=== PATIENT | female | born 1955 | race Caucasian/White ===

== ENCOUNTER → 2018-08-26 | Outpatient (CLI) | payer OTHER, SELFPAY ==
[2018-08-19 09:21] VITALS: BMI 20.1
--- NOTE | 2018-08-26 09:11 | MRI_ITS ---
STUDY: MRI ABDOMEN AND PELVIS WITH AND WITHOUT CONTRAST REASON FOR EXAM: Female, 63 years old. MRI enterography, Crohn's disease, bowel abscess, drainage tube placed July 25, 2018. TECHNIQUE: Standardized fat and water weighted pulse sequences were obtained in all 3 orthogonal planes post contrast administration. 10 ml of Dotarem contrast material was administered intravenously for the contrast portion of the examination. COMPARISON: CT abdomen and pelvis 07/22/2018 FINDINGS: MR ABDOMEN: Body wall soft tissues: No acute process. Osseous structures: No acute process. Inferior chest: No acute process. Hepatobiliary: Hepatomegaly, craniocaudal right liver 19.7 cm. Normal gallbladder and biliary tree. Pancreas: Normal. Spleen: Normal. Adrenal glands: Normal right adrenal gland. Left adrenal gland nodule 1.4 cm. Signal dropout on fat-saturated images suggest lipid content most consistent with benign lipid rich adrenal adenoma. Functional adenoma not excluded. Urinary tract: Unremarkable kidneys, collecting systems and proximal ureters. Retroperitoneum: No acute process. Abdominal vasculature: No acute process. Stomach: No acute process. Duodenum: Normal. No apparent duodenitis. Jejunum: Normal. Ileum: Visualized portions of the ileum appear normal. Large bowel: Visualized portions of large bowel including the hepatic flexure, transverse colon, splenic fracture unremarkable. MRI PELVIS: Body wall soft tissues: There is edema within the subcutaneous fat of the anterior abdominal wall. There is no visible drainage catheter. Osseous structures: Mild lumbar scoliosis. No significant spondylosis. Uterus: Large fundal fibroid measuring 6.3 cm. Adnexa: Ovaries not clearly visualized. No adnexal mass or cyst. Free fluid: Minimal pelvic cul-de-sac free fluid. Distal ureters and urinary bladder: Normal distal ureters. There is thickening of the dome of the urinary bladder wall which lies immediately adjacent to the inflamed sigmoid colon. There is a small focus of gas within the urinary bladder consistent with colovesical fistula. A tiny fistula tract is visible just left of midline traversing the urinary bladder wall. Tract measures about 6 mm in diameter at its widest extent. Best appreciated on series 21, image 33. Large bowel: The appendix is not clearly visualized. The ascending colon, transverse colon, and descending colon are normal. Proximal sigmoid colon, segment measuring 7 cm in length, is circumferential thickening of the wall, prominent inflammatory induration in the surrounding fat, inflammation of the intimately adjacent dome of the urinary bladder wall. There is no apparent abscess adjacent to the sigmoid colon. Small bowel: There is circumferential thickening of wall of the distal ileum, normalizing at the terminal ileum, involving a segment of the distal ileum measuring approximately 23 cm in length. Phlegmonous prominent induration in the surrounding mesenteric fat in the central abdomen, below the umbilicus, surrounding the proximal 3rd of the inflamed portion of small bowel. The phlegmonous process measures approximately 4. 6.4 cm. There is no defined drainable abscess. This process is centered on series 11 image 24, series 13 image 24, series 15 image 17, series 21 image 24, visible additional sequences. There is a possibility, not definitive, of a coloenteric fistula between the inflamed portion of proximal sigmoid colon and the inflamed portion of the distal ileum. Superior to the phlegmonous process, there is a very slender band of T2 hyperintensity suggesting a fistula tract coursing into the mesentery. Series 15, image 17. MRI/MRI Abd WITH and W/O Contrast IMPRESSION: Complex phlegmonous process of the small bowel mesentery, without drainable abscess. Evidence of fistulization into the dome of the urinary bladder. This may to be a colovesical fistula from the inflamed sigmoid or an enterovesical fistula from the inflamed small bowel. Favoring colovesical fistula. prominently inflamed proximal sigmoid colon. Prominently inflamed distal ileum, in particular a loop just above the proximal sigmoid colon involved with the phlegmonous process. Evidence of a slender fistula from the inflamed ileum, terminating in the mesentery. Fibroid uterus. Hepatomegaly. Electronically Signed: Sharif Dai MD at 17:24 EDT Tel , Service support ,
[2018-08-26 10:07] VITALS: BP 107/61; PULSE 67; RESP 16; O2SAT 100; BMI 20.1
[2018-08-26] MEDS: Glucagon 1 MG/ML Syringe IV (10:47)
[2018-08-26 11:25] VITALS: BP 96/50; PULSE 68; RESP 16; O2SAT 100
== END | disposition home or self-care (01) ==
LOC: MRI 08:58
PROVIDERS: Family Provider Family Medicine; PCP Family Medicine
DX: R18.8 Other ascites (principal); K50.90 Crohn's disease, unspecified, without complications
CPT/HCPCS: 74183; A9575; J1610

== ENCOUNTER 2018-09-01 08:34 | Day surgery (SDC) | payer OTHER, SELFPAY ==
[2018-08-19 09:21] VITALS: BMI 20.1
[2018-08-26 10:07] VITALS: BMI 20.1
[2018-09-01 08:46] VITALS: BP 106/56; PULSE 65; RESP 16; TEMP 36.9; O2SAT 100
--- NOTE | 2018-09-01 09:45 | IMM_PTH ---
PATIENT: EUGENIA JI LOC: EN U#:[id number] AGE/SX: 63/F ROOM: RE09/01/[address]: Dr. Bartolo Cabrera MD : 1955 BED: DIS: 09/01/2018 SPEC #: [id number] RECD: 09/01/18 12:27 STATUS: GUANAKITO LAZARA #: [id number] CARLOS: 09/01/18 09:[address]: Bartolo Cabrera DEPT: IMMUNOHISTOCHEMISTRY RECD BY: Josiane Liu ENTERED: 09/01/18 12:27 SP TYPE: IMMUNO OTHR DR: Jia Kendall PA-C Tissues: Stomach, NOS Procedures: H Pylori (initial) PHYSICIAN & INSTITUTION [place] [id number] SPECIMEN INFORMATION: Tissue Source: Antral biopsy Clinical Info: Abdominal pain, Crohn's disease, diarrhea, hemorrhoids Specimen Number: [id number] CPT code: 74693 METHODOLOGY: Deparaffinized sections of prefer/formalin-fixed tissue or PAP/DQ stained slides are incubated with monoclonal/polyclonal antibodies/oligonucleotide probes. Localization is made via biotin free immunoperoxidase method. Appropriate controls are performed and reacted as expected. Results on target cell population are indicated in the following table: RESULTS: ANTIBODY / CLONE RESULT H Pylori (polyclonal) positive These tests were developed and their performance characteristics determined by [facility]. They may not have been cleared or approved by the U.S. Food and Drug Administration. The FDA has determined that such clearance or approval is not necessary. INTERPRETATION: Antral biopsy: Positive for numerous Helicobacter pylori organisms. SJ:scooby 09/02/18
--- NOTE | 2018-09-01 09:45 | EGD_PTH ---
PATIENT: EUGENIA JI LOC: EN U#:[id number] AGE/SX: 63/F ROOM: RE09/01/[address]: Dr. Bartolo Cabrera MD : 1955 BED: DIS: 09/01/2018 SPEC #: [id number] RECD: 09/01/18 10:52 STATUS: GUANAKITO LAZARA #: [id number] CARLOS: 09/01/18 09:[address]: Bartolo Cabrera DEPT: SURGICAL PATHOLOGY RECD BY: Jair Rice ENTERED: 09/01/18 11:21 SP TYPE: EGD BIOPSY OT DR: Jia Kendall PA-C Tissues: Gastric mucous membrane Procedures: Surgery Specimen Level IV HEADER OPERATION: Colonoscopy, EGD ([facility]) PRE-OP DIAGNOSIS: Abdominal pain, Crohn's disease with abscess, diarrhea, hemorrhoids TISSUE SUBMITTED: Antral biopsy for H. pylori and pathology MICROSCOPIC DIAGNOSIS Antral biopsy: Moderate chronic active gastritis. SJ:scooby 09/02/18 COMMENT The results of immunohistochemistry for Helicobacter pylori will be reported separately ([id number]). MICROSCOPIC DESCRIPTION Slides are reviewed. GROSS DESCRIPTION Received in fixative is one container labeled with the patient's name and designated antral biopsy. The specimen consists of one irregular fragment of light shepard soft tissue that measures 0.6 x 0.4 x 0.1 cm. The specimen is totally submitted in one cassette. / SALLY:scooby 09/01/18 TC:2 CPT: 82060
--- NOTE | 2018-09-01 09:46 | OP.ENDO_ITS ---
09/01/2018 [facility] Re : Upper GI endoscopy procedure for Tari Kendall This procedure was performed on Saturday, September 01, 2018. My impressions and recommendations are as follows: Impressions : - Normal esophagus. - Z-line regular, 38 cm from the incisors. No specimens collected. - Erythematous mucosa in the prepyloric region of the stomach. Biopsied. - Normal duodenal bulb, first portion of the duodenum and second portion of the duodenum. No specimens collected. Recommendations : - Discharge patient to home. - Resume previous diet. - Continue present medications. - Await pathology results. - Repeat upper endoscopy (date not yet determined) for screening purposes. - Return to my office in 1 week. My findings are described in the full procedure note, which is enclosed. If I can be of further assistance, please feel free to contact me at Doctor phone number(s): , Fax: [phone], Work: . Sincerely, MD Bartolo Dodd MD 09/01/2018 9:46:22 AM This report has been signed electronically.
--- NOTE | 2018-09-01 09:49 | OP.ENDO_ITS ---
09/01/2018 [facility] Kend[facility] Re : Colonoscopy procedure for Tari Kendall This procedure was performed on Saturday, September 01, 2018. My impressions and recommendations are as follows: Impressions : - Diverticulosis in the descending colon. No specimens collected. - Non-bleeding internal hemorrhoids. - The examination was otherwise normal. Recommendations : - Discharge patient to home. - Resume previous diet. - Continue present medications. - Repeat colonoscopy in 5 years for surveillance. - Return to my office in 1 week. My findings are described in the full procedure note, which is enclosed. If I can be of further assistance, please feel free to contact me at Doctor phone number(s): , Fax: [phone], Work: . Sincerely, MD Bartolo Dodd MD 09/01/2018 9:49:22 AM This report has been signed electronically.
[2018-09-01 09:50] VITALS: BP 106/56; BP 114/66; PULSE 66; RESP 16; TEMP 36.6; O2SAT 100
[2018-09-01 09:55] VITALS: BP 104/68; BP 106/56; PULSE 59; RESP 16; O2SAT 100
[2018-09-01 10:00] VITALS: BP 102/68; BP 106/56; PULSE 60; RESP 16; O2SAT 100
[2018-09-01 10:05] VITALS: BP 104/64; BP 106/56; PULSE 58; RESP 16; TEMP 36.4; O2SAT 100
[2018-09-01 10:46] VITALS: BP 106/56
== END 2018-09-01 10:47 | disposition home or self-care (01) ==
LOC: EN 08:35 → AC 08:36
PROVIDERS: Family Provider Family Medicine; PCP Family Medicine; Referring Provider Family Medicine; Visit Provider Surgery
PROC: 0DJD8ZZ Inspection of Lower Intestinal Tract, Via Natural or Artificial Opening Endoscopic (ICD-10-PCS; CPT 45378; principal; 2018-09-01 09:40)
DX: K29.50 Unspecified chronic gastritis without bleeding (principal); B96.81 Helicobacter pylori [H. pylori] as the cause of diseases classified elsewhere; K57.30 Diverticulosis of large intestine without perforation or abscess without bleeding; K64.8 Other hemorrhoids; K50.814 Crohn's disease of both small and large intestine with abscess; K65.1 Peritoneal abscess; Z79.899 Other long term (current) drug therapy; Z87.891 Personal history of nicotine dependence
CPT/HCPCS: 43239; 45378; 88305; 88342; J7120; J2405

== ENCOUNTER 2021-08-16 12:52 | Emergency (ER) | payer OTHER, SELFPAY ==
[2021-08-16 12:52] VITALS: BP 145/81; PULSE 89; RESP 16; TEMP 36.4; O2SAT 96; BMI 22.8
--- NOTE | 2021-08-16 13:22 | EKG12_ITS ---
Test Reason : Blood Pressure : / mmHG Vent. Rate : 069 BPM Atrial Rate : 069 BPM P-R Int : 164 ms QRS Dur : 106 ms QT Int : 536 ms P-R-T Axes : 028 016 033 degrees QTc Int : 574 ms Normal sinus rhythm Nonspecific ST abnormality Prolonged QT Abnormal ECG Confirmed by CINDY CASTELLANOS, ELIZABETH ([id number]), communications editor JERI TYLER ([id number]) on 08/23/2021 10:27:32 AM Referred By: SAIRA Confirmed By:ELIZABETH WHITE MD
--- NOTE | 2021-08-16 13:26 | EDS_ITS ---
HPI HPI - GI History of Present Illness Chief Complaint: Abd Pain Informant: patient Abdominal Pain/Flank Pain Onset: Month(s) Context: Gradual Onset Timing: Intermittent Quality: Cramping Location: Diffuse Current Severity: Mild Maximum Severity: Mild Worsened by: Nothing Relieved by: Nothing Nausea/Vomiting/Emesis GI Symptom: Negative for Nausea and Vomiting Diarrhea/Melena/Hematochezia GI Symptom: Positive for Diarrhea Stool Quality: Positive for Loose Severity: Mild Associated Symptoms Associated Symptoms: Negative for Dysuria, Frequency, Hematuria and Urgency Narrative Narrative: 6-year-old female history of colitis or possibly Crohn's. About 4 years ago had a abdominal surgery for an abscess possibly a fistula. Had a partial colectomy and appendectomy. States she does has been feeling well the last 2 to 3 months. Intermittent abdominal pain. Weight loss of 40 to 50 pounds unintentionally. Denies fever or chills. No dysuria. Saw her primary care physician today who sent her to the emergency department. Prior similar symptoms: Yes Recent Illness/Hospitalization: No PFSH PFSH Medical History Abdominal pain Chronic gastritis Colitis Crohns disease Diarrhea Hemorrhoids Home Medications sertraline 50 mg tablet 50 mg PO DAILY 08/19/18 [History Last Taken Unknown] potassium chloride 20 meq PO BID 20 Days #40 tab 08/16/21 [Rx Last Taken Unknown] Allergy/AdvReac Type Severity Reaction Status Date / Time No Known Allergies Allergy Verified 08/16/21 12:54 Family History Mother Thyroid disorder Cancer Rectal Father Diabetes Heart disease Surgical History History of bowel resection History of colonoscopy (~09/01/18) History of esophagogastroduodenoscopy (EGD) (~09/01/18) s/p insertion drainage tube abdomen Social History Smoking Status: Former smoker alcohol intake: current alcohol intake frequency: a few times a month substance use type: does not use ROS ROS ED ROS Narrative Weight loss. Review of Systems ROS Unobtainable: Denies due to encephalopathy Constitutional Constitutional ED: Denies fever(s) ENT ENT ED: Denies ear pain Cardiovascular Cardiovascular: Denies chest pain Respiratory/Chest Respiratory/Chest: Denies dyspnea Gastrointestinal Gastrointestinal: Reports abdominal pain and diarrhea; Denies nausea or vomiting Genitourinary Genitourinary ED: Denies dysuria Musculoskeletal Musculoskeletal: Denies myalgias Integumentary Denies rash Neurologic Neurologic: Denies headache(s) Psychiatric Psychiatric: Denies depression Endocrine Endocrinology: Denies polyuria Hematologic/Lymphatic Hematologic/Lymphatic: Denies easy bruising Allergic/Immunologic Allergic/Immunologic ED: Denies urticaria EXAM Physical Exam Narrative Exam Narrative: 36-year-old female no acute distress. Vital signs stable. Af ebrile. HEENT exam unremarkable. Neck nontender. Lungs clear to auscultation bilaterally heart regular rate and rhythm rate about 90 no murmur. Abdomen soft nondistended normal bowel sounds no peritoneal signs. No signs of obstruction. Well-healed prior vertical incision. Back nontender. Rectal exam done with a female friend who is in the room. There is an external hemorrhoid. Is nontend er. Is not bleeding. It is not thrombosed. Moving all 4 extremities. Nontender no edema. Neurologically awake alert. Const Vital Signs: 08/16/21 12:52 Temperature 97.5 F L Temperature Source Temporal Pulse Rate 89 Respiratory Rate 16 Blood Pressure 145/81 H Blood Pressure Mean 102 Pulse Ox 96 Oxygen Delivery Method Room Air Positive well nourished and well developed; Negative for obese, cachectic, contractures or unkempt General Appearance ED: well developed and NAD; Negative for unkempt, cachectic, contractures or pallor Nutritional Appearance: Negative for cachectic or obese HEENT Reports moist mucous membranes normocephalic and atraumatic Eyes PERRL and EOMs intact bilaterally General Eye ED: Negative for pale conjunctiva or scleral icterus Neck no lymphadenopathy, supple and no JVD General: Negative for tenderness Resp normal respiratory effort and clear to auscultation bilaterally Auscultation: Negative for rales, rhonchi or wheezes Cardio regular rate, regular rhythm, S1 normal heart sound, S2 normal heart sound and no murmurs GI non-tender, non-distended and no masses Auscultation: normoactive bowel sounds Palpation: soft; Negative for tender, guarding or rigid Back/Spine no CVA tenderness General Back: Negative for CVA tenderness Cervical Spine: Negative for cervical spine tenderness Thoracic Spine / Upper Back: Negative for thoracic spinal tenderness Extremity full ROM General Extremety ED: Negative for edema or tenderness General Extremity: Negative for edema Neuro moves all extremities Sensorium / Orientation: alert, oriented to person, oriented to place and donell ented to time; Negative for orientation impaired, confused, lethargic or stuporous Motor Exam: strength 5/5 throughout Psych mental status grossly normal and thought process normal Appearance: Negative for unkempt Skin no wounds General Skin Exam: Negative for jaundice or pallor Lesions: no lesions Rashes: no rashes MDM MDM MDM Narrative Medical decision making narrative: 66-year-old female who states she just has not been feeling well for the last 2 to 3 months. Complaining of weight loss intermittent abdominal pain. CAT scan and labs are pending. Lab Data Attestation: I reviewed the patient's lab results. Lab results narrative: CBC is unremarkable. White count of 9.5. H&H of 13 and 40. [place] light show potassium of 2.1. Normal BUN of 10 creatinine 0.8. Liver enzymes are normal. Urinalysis shows 10-25 red cells. No white cells. No bacteria. No nitrites. Labs: Laboratory Results - last 24 hr 08/16/21 08/16/21 08/16/21 13:35 13:35 13:45 WBC 9.5 RBC 4.66 Hgb 13.3 Hct 40.1 MCV 86.1 MCH 28.5 MCHC 33.2 RDW Std Deviation 38.8 RDW Coeff of Jessica 12.3 Plt Count 346 MPV 8.6 Immature Gran % (Auto) 0.700 Neut % (Auto) 81.1 H Lymph % (Auto) 9.2 L [place] % (Auto) 8.4 Eos % (Auto) 0.3 Baso % (Auto) 0.3 Absolute Neuts (auto) 7.7 Absolute Lymphs (auto) 0.87 Nucleated RBC % 0 Sodium 136 Potassium 2.1 L* Chloride 93 L Carbon Dioxide 36.0 H Anion Gap 7 BUN 10 Creatinine 0.86 Estim Creat Clear Calc 61.05 Est GFR (MDRD) Af Amer 85 Est GFR (MDRD) Non-Af 71 BUN/Creatinine Ratio 11.7 Glucose 139 H Calcium 8.8 Total Bilirubin 0.50 AST 12 L ALT 20 Alkaline Phosphatase 107 Total Protein 7.8 Albumin 3.0 L Globulin 4.8 H Albumin/Globulin Ratio 0.6 L Urine Color Yellow Urine Clarity Clear Urine pH 6.0 Ur Specific [place] 1.015 Urine Protein 30 H Urine Glucose (UA) Normal Urine Ketones 50 H Urine Occult Blood 150 H Urine Nitrite Negative Urine Bilirubin Negative Urine Urobilinogen Normal Ur Leukocyte Esterase 25 H Urine RBC 10-25 SEEN Urine WBC 0-5 SEEN Ur Squamous Epith Cells 0-5 SEEN Urine Bacteria 0 SEEN Hyaline Casts 0-5 SEEN Urine Mucus 0 SEEN Radiography Diagnostic Testing: Clinical Impression(s) from Imaging Studies Abdomen/Pelvis CT 08/16/21 13:31 IMPRESSION: No evidence of prior surgical anastomosis of the tibia and ileum with the evidence of a thickening of the ileal wall and increased markings in the surrounding fat in keeping with the recurrent disease. There is also evidence of mesenteric adenitis. Enlarged heterogeneous calcified fibroid uterus. Diffuse fatty infiltration of the liver. Heterogeneous enhancement of the 2.4 cm x 1.3 cm nodule in the left adrenal gland. Electronically Signed: Billy Dukes MD at 14:45 EDT , Rhythm Strip Rhythm Strip: Sinus Rhythm Rate: 69 Ectopy: None EKG Initial EKG: Attestation: I personally reviewed and interpreted this EKG as follows: Interpretation: Sinus Rhythm and No Acute Injury Pattern Comments: Normal sinus rhythm rate of 69. No acute abnormalities. Discharge Plan Triage Chief Complaint: Abd Pain ED Provider: Dom Jones Dx/Rx/DC Orders Clinical Impression: Diarrhea, Crohn's disease, Acute hypokalemia, Fibroid uterus Instructions: ED Crohn's Disease, ED Hypokalemia Prescriptions: New potassium chloride 20 mEq tablet,ER particles/crystals 20 meq PO BID 20 Days Qty: 40 RF: 0 No Action sertraline 50 mg tablet 50 mg PO DAILY RF: 0 Primary Care Provider: Jia Kendall Referrals: FriendMitchel DO [STAFF PHYSICIAN] - As soon as possible Jia Kendall PA-C [Primary Care Provider] - As soon as possible Activity Restrictions/Additional Instructions: Follow-up with your doctor. On your CAT scan today they saw a left adrenal abnormality. Your doctor can follow that up. Call and follow-up with Dr. Blanco for evaluation of your Crohn's and chronic diarrhea. Your potassium is low I wrote you A prescription for potassium. You should have that rechecked in 1 to 2 weeks. Disposition Disposition: Home, Self Care
--- NOTE | 2021-08-16 13:31 | CT_ITS ---
STUDY: CT ABDOMEN AND PELVIS WITH CONTRAST REASON FOR EXAM: Female, 66 years old. Diarrhea and weight loss. History of Crohn''s disease. Prior bowel resection. RADIATION DOSAGE (If Supplied By Facility): CTDIvol = ( 12.45 ) mGy, DLP = ( 680.24 ) mGycm TECHNIQUE: Transaxial images were obtained from the dome of the diaphragm to the symphysis pubis without oral contrast. IV 100mL Isovue-300 was administered. Sagittal and coronal images were reconstructed. Individualized dose optimization techniques were used for this CT. COMPARISON: None. FINDINGS: The visualized lung bases are unremarkable. The visualized portions of the heart are within normal limits. There is decreased attenuation of the liver consistent with steatosis. There is a solitary gallstone. This measures 3 mm. Normal spleen. Normal pancreas. There is a heterogeneous enhancing mass in the left adrenal gland measuring 2.4 centimeters x 1.3 cm. Normal right kidney. Normal left kidney. Normal visualized stomach. Surgical anastomosis of the terminal ileum. There is evidence of a diffuse thickening of the terminal ileum with mild increased markings in the surrounding peritoneal fat suggests a recurrent Crohn''s disease. There is also evidence of a small lymph nodes in the mesentery in the right lower quadrant is suggestive of a mesenteric adenitis. Normal colon. The appendix is visualized and appears normal. There is diffuse atherosclerotic calcification of the abdominal aorta, without a demonstrated aneurysm. Normal inferior vena cava. Normal retroperitoneum. Normal urinary bladder. There is an enterocutaneous calcified enlarged fibroid uterus. There is a small umbilical hernia containing fat. Degenerative changes of the sacroiliac joints bilaterally. CT/Abdomen/Pelvis W IV Cont ONLY IMPRESSION: No evidence of prior surgical anastomosis of the tibia and ileum with the evidence of a thickening of the ileal wall and increased markings in the surrounding fat in keeping with the recurrent disease. There is also evidence of mesenteric adenitis. Enlarged heterogeneous calcified fibroid uterus. Diffuse fatty infiltration of the liver. Heterogeneous enhancement of the 2.4 cm x 1.3 cm nodule in the left adrenal gland. Electronically Signed: Billy Dukes MD at 14:45 EDT ,
[2021-08-16 13:43] LABS: Absolute Lymphocyte Count 0.87 X10^3/uL (0.83-4.51); Absolute Neutrophil Count 7.7 X10^3/uL (2.0-7.7); Basophil# 0.03 X10^3/uL; Basophil% 0.3 % (0-1); Eosinophil# 0.03 X10^3/uL; Eosinophils% 0.3 % (0-5); Hematocrit 40.1 % (37-47); Hemoglobin 13.3 g/dL (12.0-15.0); Lymphocyte # 0.87 X10^3/ul (0.83-4.51); Lymphocyte % 9.2 % (19-41); Mean Corp Hgb Conc 33.2 g/dL (32-36); Mean Corpuscular Hgb 28.5 pg (27.0-32.0); Mean Corpuscular Volume 86.1 fL (81-99); Mean Platelet Vol. 8.6 fl (6.2-12.0); Monocyte% 8.4 % (0-10); NRBC Flagged by Analyzer 0 % (0-5); Neutrophil # 7.67 X10^3/uL (2.7-7.7); Neutrophil % 81.1 % (47-70); Platelet Count 346 K/mm3 (150-450); RBC Distribution Width CV 12.3 % (11.6-14.6); RBC Distribution Width SD 38.8 fl (35.1-43.9); Red Blood Count 4.66 M/mm3 (4.2-5.4); White Blood Count 9.5 K/mm3 (4.4-11.0)
[2021-08-16 13:51] LABS: Bacteria 0 SEEN /hpf (None Seen); Mucous, Urine 0 SEEN /hpf (<or=2+)
[2021-08-16 13:53] LABS: Color, Urine Yellow (Yellow); Glucose, Dipstick Normal (Normal); Ketone-Dipstick 50 mg/dl (Negative); Leukocyte Esterase-Dipstick 25 /ul (Negative); Nitrite-Dipstick Negative (Negative); Occult Blood-Urine 150 /ul (Negative); Protein-Dipstick 30 mg/dl (Negative); Specific Gravity, Urine 1.015 (1.002-1.030); Urine Bilirubin Dipstick Negative (Negative); Urine Clarity Clear (Clear); Urine Urobilinogen Normal (Normal)
[2021-08-16 14:01] LABS: ALB/GLOB Ratio 0.6 RATIO (0.9-2.4); AST(SGOT) 12 U/L (15-37); Alanine Aminotransfer ALT/SGPT 20 U/L (13-56); Alkaline Phosphatase 107 U/L (45-117); Anion Gap 7 (5-15); BUN 10 mg/dL (7-18); BUN/Creat Ratio 11.7 RATIO (10-20); Calcium,Total 8.8 mg/dL (8.5-10.1); Chloride 93 mmol/L (98-107); Creatinine, Serum 0.86 mg/dL (0.55-1.02); EST Glomerular Filtration Rate 71 mL/min (>60); Est Glom Filt Rate - Afr Amer 85 mL/min (>60); Estimated Creatinine Clearance 61.05 ml/min; Globulin 4.8 g/dL (2.2-4.2); Glucose 139 mg/dL (74-106); Potassium 2.1 mmol/L (3.5-5.1); Protein, Total 7.8 g/dL (6.4-8.2); Sodium Level 136 mmol/L (136-145)
--- NOTE | 2021-08-16 14:03 | ED.RN ---
K of 2.[address] Jones aware
[2021-08-16 14:10] LABS: Hyaline Cast 0-5 SEEN /lpf (0-5); Red Blood Cells-Urine 10-25 SEEN /hpf (0-5); Squamous Epithelial Cells - UA 0-5 SEEN /hpf (5-10); White Blood Cells 0-5 SEEN /hpf (0-5)
[2021-08-16] MEDS: Potassium Chloride Oral Tablet 20 MEQ 40 MEQ PO (15:55)
[2021-08-16] MEDS: Potassium Chloride 10mEq/100mL 10 MEQ/100 ML IV.SOLN. 100 MEQ IV BOLUS ×2 (15:55→17:02)
[2021-08-16 16:03] VITALS: BP 115/73; PULSE 63
[2021-08-16 18:05] VITALS: BP 119/76; PULSE 61
== END 2021-08-16 18:31 | disposition home or self-care (01) ==
LOC: ED 13:29
PROVIDERS: Emergency Provider Emergency Medicine; PCP Family Medicine; Visit Provider Emergency Medicine
DX: K50.90 Crohn's disease, unspecified, without complications (principal); Z87.891 Personal history of nicotine dependence; D25.9 Leiomyoma of uterus, unspecified; E87.6 Hypokalemia; R19.7 Diarrhea, unspecified; Z79.899 Other long term (current) drug therapy
CPT/HCPCS: 74177; 80053; 81001; 85025; 93005; 96365; 96366; 99283; J7030; Q9967; A4216